=== PATIENT | female | born 1970 | race Caucasian/White ===

== ENCOUNTER → 2022-02-18 11:03 | Outpatient (BNVA) | payer MEDICAID, SELFPAY | PROVIDERS: PCP Nurse Practitioner Family; Visit Provider Nurse Practitioner Family | DX: N18.9 Chronic kidney disease, unspecified (principal); M25.511 Pain in right shoulder; M25.512 Pain in left shoulder | CPT/HCPCS: 80053; 84550; 85651; 86038; 86140; 86431 ==